=== PATIENT | female | born 1990 | race Caucasian/White ===

== ENCOUNTER 2016-10-24 12:28 | Inpatient (IN) | payer OTHER ==
[~2016-10-24] VITALS: Ht 152.4 cm; Wt 64.1 kg
[2016-10-24 13:00] VITALS: BP 118/62; PULSE 90; RESP 18; Ht 152.4 cm; Wt 64.1 kg
[2016-10-24] MEDS ORDERED: FERR325C PO (13:09)
[2016-10-24] MEDS ORDERED: CALC600T11 PO (13:09)
[2016-10-24] MEDS ORDERED: PRENAT PO (13:09)
[2016-10-24] MEDS ORDERED: OXYTOCIN 30 UNITS/LR 500 ML IV PRN (15:00)
[2016-10-24] MEDS ORDERED: METHYLERGONOVINE 0.2 MG INJ IM PRN (15:00)
[2016-10-24] MEDS ORDERED: BETAMET NA PHOS/AC(6 MG/ML) 5ML INJ IM ONE (15:00)
[2016-10-24] MEDS ORDERED: AMPICILLIN 2 GM/NS (PMX) 100 ML IV ONE (15:00)
[2016-10-24] MEDS ORDERED: MISOPROSTOL 200 MCG TAB PR PRN (15:00)
[2016-10-24] MEDS ORDERED: CARBOPROST 250 MCG INJ IM PRN (15:00)
[2016-10-24] MEDS ORDERED: OXYTOCIN 30 UNITS/LR 500 ML IV SCH ×2 (15:00)
[2016-10-24] MEDS ORDERED: LACTATED RINGER'S 1,000 ML IV PRN (15:00)
[2016-10-24] MEDS ORDERED: IBUPROFEN 600 MG TAB PO PRN (15:00)
[2016-10-24] MEDS ORDERED: LIDOCAINE 1% (MPF) 30 ML INJ INJ PRN (15:00)
[2016-10-24] MEDS ORDERED: NIFEdipine 10 MG CAP ONE (15:21)
[2016-10-24] MEDS: LACTATED RINGER'S 1,000 ML IV SCH (15:24)
[2016-10-24] MEDS: NIFEdipine 10 MG CAP PO SCH (15:49)
[2016-10-24 15:58] LABS: BASOPHILS % 0.1 % (0.0-2.0); EOSINOPHILS # 0.1 10^3/ul (0.0-0.5); EOSINOPHILS % 1.2 % (0.0-7.0); HEMATOCRIT 37.1 % (37.0-47.0); HEMOGLOBIN 12.8 g/dl (12.0-16.0); LYMPHOCYTES # 1.1 10^3/ul (0.8-2.9); LYMPHOCYTES % 9.3 % (15.0-51.0); MEAN CORPUSCULAR HEMOGLOBIN 31.7 pg (29.0-33.0); MEAN CORPUSCULAR HGB CONC 34.4 g/dl (32.0-37.0); MEAN PLATELET VOLUME 9.6 fl (7.4-10.4); MONOCYTE # 0.8 10^3/ul (0.3-0.9); MONOCYTES % 6.4 % (0.0-11.0); NEUTROPHIL # 10.1 10^3/ul (1.6-7.5); PLATELET COUNT 218 10^3/UL (140-440); RED BLOOD COUNT 4.03 10^6/ul (4.20-5.40); RED CELL DISTRIBUTION WIDTH 12.9 % (11.5-14.5); UNCORRECTED WBC 12.2 10^3/ul (4.8-10.8); WHITE BLOOD COUNT 12.2 10^3/ul (4.8-10.8)
[2016-10-24 16:06] LABS: INR 1.01; PROTIME 13.3 Sec (12.2-14.2)
[2016-10-24 16:07] LABS: PARTIAL THROMBOPLASTIN TIME 30.3 Sec (25.0-35.0)
[2016-10-24 16:12] LABS: CONDITION 1
[2016-10-24 16:24] LABS: BARBITURATES Negative (NEGATIVE); BENZODIAZEPINES Negative (NEGATIVE); CANNABINOIDS Negative (NEGATIVE); COCAINE Negative (NEGATIVE)
[2016-10-24 16:31] LABS: OPIATES Negative (NEGATIVE)
[2016-10-24] MEDS ORDERED: GLUCOSE GEL 15 GRAM TUBE BUCCAL PRN (19:30)
[2016-10-24] MEDS ORDERED: DEXTROSE 50% 50 ML SYRINGE IV PRN ×2 (19:30)
[2016-10-24] MEDS ORDERED: GLUCOSE GEL 15 GRAM TUBE PO PRN ×2 (19:30)
[2016-10-24] MEDS ORDERED: GLUCAGON 1 MG INJ IM PRN (19:30)
[2016-10-24] MEDS: ACCUCHECK XX SCH (19:35)
--- NOTE | 2016-10-24 20:32 | HP ---
Date/Time of Note Date/Time of Note DATE: 10/24/16 TIME: 20:24 OB - History Hx of Present Chief Complaint: Contractions Last Menstrual Period: February 27, 2016 Estimated Due Date: Nov 25, 2016 : 1 Para: 0 Spontaneous : 0 Therapeutic : 0 Care: Good Care Ultrasounds: Normal mid trimester US Obstetrical Complications: Gestational Diabetes Medical Complications: None Past Family/Social History * Past Medical, Surgical, Family and Obstetric Histories reviewed from chart. OB Admission Exam Vital Signs Vital Signs Vital Signs Date Time Temp Pulse Resp B/P Pulse Ox O2 Delivery O2 Flow Rate FiO2 10/24/16 13:00 98.7 90 18 118/62 Room Air Physical Exam HEENT: WNL Heart: Rhythm Normal Lungs: Clear Abdomen: WNL Extremities: Normal Reflexes: Normal Cervical Dilatation: 3cm Effacement: 75% Station: -1 Membranes: Intact Heart Rate: 150's Decelerations: No Decelerations Varibility: Moderate Contractions on Admission: < 5 Minutes Apart Intensity: Mild Last 72 hourBlood Glucose Bedside Glucose - 72 Hours Test 10/24/16 20:17 Bedside Glucose 150mg/dL (70-220) Last 72 hours Lab Results CBC & BMP 10/24/16 15:25 OB Assessment/Plan Reason for admission: labor Plan: Other Other plan: Procardia for tocolysis. IM betamethasone for lung maturity. IV ampicillin for GBS prophylaxis. Monitor blood glucose. Sliding scale insulin coverage as needed. SHELLY CORNEJO MD Oct 24, 2016 20:32
[2016-10-24] MEDS ORDERED: ACCUCHECK XX SCH (21:00)
[2016-10-24] MEDS: AMPICILLIN 1 GM/NS (PMX) 50 ML IV SCH (21:10)
[2016-10-24] MEDS: INSULIN ASPART [NOVOLOG] 3 ML PEN SC SCH (21:24)
[2016-10-25] MEDS: LACTATED RINGER'S 1,000 ML IV SCH ×6 (00:14→22:44)
[2016-10-25] MEDS: AMPICILLIN 1 GM/NS (PMX) 50 ML IV SCH ×7 (00:46→23:00)
[2016-10-25] MEDS: NIFEdipine 10 MG CAP PO SCH ×4 (00:48→17:57)
[2016-10-25] MEDS: ACCUCHECK XX SCH ×4 (06:00→19:35)
--- NOTE | 2016-10-25 07:21 | RADRPT ---
PROCEDURE: Limited OB ultrasound CLINICAL INDICATION: Leaking fluid TECHNIQUE: Sonographic evaluation to assess the GIULIA was performed. Transabdominal imaging of the gravid uterus was performed. COMPARISON: No prior exam is available for comparison. FINDINGS: There is a single live intrauterine with a heart rate of 136 bpm. position is cephalic. The placenta is posterior. The GIULIA measures 4.9 cm. IMPRESSION: Oligohydramnios. The GIULIA measures 4.9 cm. RPTAT: HH .Anjali Mondragon MD, MD Date Time Electronically viewed and signed by .Anjali Mondragon MD, on 10/25/2016 07:20 .G/
[2016-10-25] MEDS ORDERED: LACTATED RINGER'S 1,000 ML IV ONE (08:30)
[2016-10-25] MEDS: INSULIN ASPART [NOVOLOG] 3 ML PEN SC SCH ×3 (09:35→19:35)
[2016-10-25] MEDS ORDERED: BETAMET NA PHOS/AC(6 MG/ML) 5ML INJ IM STA (16:01)
--- NOTE | 2016-10-25 20:09 | QN ---
Documentation Comment Patient c/o occasional contractions. Denies any leakage of fluid. Afebrile VSS Strip Category I GIULIA 4.9 Will give IV hydration. Repeat GIULIA on 10/26/2016. SHELLY CORNEJO MD Oct 25, 2016 20:08
[2016-10-26] MEDS: NIFEdipine 10 MG CAP PO SCH ×4 (00:08→17:59)
[2016-10-26] MEDS: LACTATED RINGER'S 1,000 ML IV SCH ×7 (00:12→22:44)
[2016-10-26] MEDS: AMPICILLIN 1 GM/NS (PMX) 50 ML IV SCH ×3 (02:40→11:15)
--- NOTE | 2016-10-26 09:33 | RADRPT ---
PROCEDURE: US evaluation of amniotic fluid volume. CLINICAL INDICATION: Low amniotic fluid volume. TECHNIQUE: Multiple sonographic images of the gravid uterus were obtained utilizing bardales-scale angeline ging. Sagittal and transverse images were obtained. The images were reviewed on a PACS workstation . GIULIA was measured. COMPARISON: 10/25/2016 which demonstrated oligohydramnios. FINDINGS: There is a single live intrauterine . heart rate is 141 beats per minute. Position is cephalic. Placenta is lateral left grade II with no abruption or previa. GIULIA is 11.1 cm. (Normal = 5-20 cm.) IMPRESSION: 1. GIULIA is 11.1 cm. RPTAT: QQ .Manfred Aragon MD, MD Date Time Electronically viewed and signed by .Manfred Aragon MD, on 10/26/2016 09:33 .R/
--- NOTE | 2016-10-26 19:03 | QN ---
Documentation Comment Patient with mild contractions. Afebrile VSS Strip Category I GIULIA 11.1 Continue with present management. Repeat GIULIA on 10/27/2016. SHELLY CORNEJO MD Oct 26, 2016 19:03
[2016-10-26] MEDS: INSULIN ASPART [NOVOLOG] 3 ML PEN SC SCH ×3 (19:30→20:50)
[2016-10-26] MEDS: ACCUCHECK XX SCH (20:31)
[2016-10-27] MEDS: LACTATED RINGER'S 1,000 ML IV SCH ×7 (00:30→21:45)
[2016-10-27] MEDS: NIFEdipine 10 MG CAP PO SCH ×5 (00:52→23:50)
[2016-10-27] MEDS: ACCUCHECK XX SCH ×5 (06:03→20:43)
--- NOTE | 2016-10-27 08:09 | RADRPT ---
PROCEDURE: Limited OB ultrasound CLINICAL INDICATION: Leaking fluid TECHNIQUE: Sonographic evaluation to assess the GIULIA was performed. Transabdominal imaging of the gravid uterus was performed. COMPARISON: OB ultrasound dated 10/25/2016 FINDINGS: There is a single live intrauterine with a heart rate of 154 bpm. position is cephalic. The placenta is posterior. The GIULIA measures 12.6 cm. IMPRESSION: The GIULIA measures 12.6 cm. RPTAT: HH .Anjali Mondragon MD, MD Date Time Electronically viewed and signed by .Anjali Mondragon MD, on 10/27/2016 08:09 .G/
[2016-10-27] MEDS: INSULIN ASPART [NOVOLOG] 3 ML PEN SC SCH ×4 (09:35→19:35)
--- NOTE | 2016-10-27 17:26 | QN ---
Documentation Comment Patient with occasional contractions. Afebrile VSS Tracing Category I GIULIA 12 Cervix 4 cm Continue with in hospital care. SHELLY CORNEJO MD Oct 27, 2016 17:25
[2016-10-28] MEDS: LACTATED RINGER'S 1,000 ML IV SCH ×5 (02:03→23:40)
[2016-10-28] MEDS: NIFEdipine 10 MG CAP PO SCH ×3 (11:48→18:01)
--- NOTE | 2016-10-28 21:32 | QN ---
Documentation Comment Patient with mild contractions. Afebrile VSS Strip Category I Will d/c Procardia. Expectant management. SHELLY CORNEJO MD Oct 28, 2016 21:32
[2016-10-29] MEDS: LACTATED RINGER'S 1,000 ML IV SCH ×7 (01:24→21:57)
[2016-10-29] MEDS: ACCUCHECK XX SCH ×4 (08:45→22:05)
--- NOTE | 2016-10-29 11:52 | RADRPT ---
PROCEDURE: OB ultrasound (limited) CLINICAL INDICATION: Contractions TECHNIQUE: Limited sonographic evaluation of the gravid uterus was performed. Transabdominal imag ing was performed. COMPARISON: 10/27/2016 FINDINGS: Single intrauterine gestation is identified in cephalic position. Placenta is posterior without ailyn dence for abruption or previa. heart rate is 143 bpm. GIULIA measures 9.0 cm, within normal menendez its. Previously, GIULIA measured 12.6 cm. Gestational age was not assessed. IMPRESSION: 1. Single live intrauterine gestation, as above. RPTAT: EE .Roni Lagos MD, MD Date Time Electronically viewed and signed by .Roni Lagos MD, on 10/29/2016 11:52 .R/
--- NOTE | 2016-10-29 12:57 | QN ---
Documentation Comment Patient with occasional contractions. Afebrile VSS Strip Category I GIULIA 9.1 Cervix 4 cm/ 70% Continue with expectant management. SHELLY CORNEJO MD Oct 29, 2016 12:57
[2016-10-30] MEDS: LACTATED RINGER'S 1,000 ML IV SCH ×4 (04:23→22:44)
--- NOTE | 2016-10-30 19:11 | QN ---
Documentation Comment Patient with occasional contractions. Afebrile VSS Strip Category I Continue with in hospital care. SHELLY CORNEJO MD Oct 30, 2016 19:11
[2016-10-31] MEDS: LACTATED RINGER'S 1,000 ML IV SCH ×3 (05:14→22:51)
[2016-10-31] MEDS: ACCUCHECK XX SCH ×4 (07:30→20:05)
--- NOTE | 2016-10-31 08:09 | RADRPT ---
PROCEDURE: US evaluation of amniotic fluid volume. CLINICAL INDICATION: Pelvic pain. TECHNIQUE: Multiple sonographic images of the gravid uterus were obtained utilizing bardales-scale angeline ging. Sagittal and transverse images were obtained. The images were reviewed on a PACS workstation . GIULIA was measured. COMPARISON: 10/26/2016. FINDINGS: There is a single live intrauterine . heart rate is 137 beats per minute. Position is cephalic. Placenta is fundal grade II with no abruption or previa. GIULIA is 10.8 cm. (Normal = 5-20 cm.) IMPRESSION: 1. GIULIA is 10.8 cm. RPTAT: QQ .Manfred Aragon MD, Date Time Electronically viewed and signed by .Manfred Aragon MD, on 10/31/2016 08:09 .R/
--- NOTE | 2016-10-31 21:47 | QN ---
Documentation Comment No complaint Afebrile VSS strip Reactive Continue present care. SHELLY CORNEJO MD Oct 31, 2016 21:47
[2016-11-01] MEDS: ACCUCHECK XX SCH ×4 (07:30→20:05)
[2016-11-01] MEDS: LACTATED RINGER'S 1,000 ML IV SCH ×2 (07:59→17:22)
[2016-11-01] MEDS: MULTIVIT/MIN/FOLATE/IRON/PREN TAB PO SCH ×2 (09:00→10:59)
--- NOTE | 2016-11-01 21:15 | QN ---
Documentation Comment No complaint. Afebrile VSS Strip Reactive Continue with in hospital care. SHELLY CORNEJO MD Nov 01, 2016 21:15
[2016-11-02] MEDS: LACTATED RINGER'S 1,000 ML IV SCH ×5 (00:47→18:30)
[2016-11-02] MEDS: ACCUCHECK XX SCH ×4 (07:43→20:05)
--- NOTE | 2016-11-02 10:41 | RADRPT ---
PROCEDURE: US biophysical profile. CLINICAL INDICATION: Diminished amniotic fluid volume. TECHNIQUE: Multiple sonographic images of the uterus were obtained. The images were revi ewed on a PACS workstation. COMPARISON: Amniotic fluid index ultrasound dated 10/31/2016. FINDINGS: There is a single live intrauterine gestation. heart rate is 146 beats per minute. The position is cephalic. The placenta is posterior grade II with no abruption or previa. The GIULIA is 7.1 cm. (Normal = 5-20 cm.) Breathing Movement: 2 Gross Body Movement: 2 Tone: 2 Qualitative Amniotic Fluid Volume: 2 TOTAL: 8 IMPRESSION: 1. The biophysical score is 8/8. 2. Amniotic fluid index is 7.1 cm. RPTAT: QQ .Manfred Aragon MD, Date Time Electronically viewed and signed by .Manfred Aragon MD, on 11/02/2016 10:41 .R/
--- NOTE | 2016-11-02 18:12 | QN ---
Documentation Comment No cpmplaint. Afebrile VSS Strip Reactive with one episode of heart deceleration BPP 8/8 GIULIA 7.1 Will give IV hydration. Repeat GIULIA on 11/03/2016. SHELLY CORNEJO MD Nov 02, 2016 18:12
[2016-11-02] MEDS ORDERED: LACTATED RINGER'S 1,000 ML IV ONE (18:30)
[2016-11-03] MEDS: LACTATED RINGER'S 1,000 ML IV SCH ×6 (01:15→21:10)
--- NOTE | 2016-11-03 01:55 | QN ---
Documentation Comment No complaint. Afebrile VSS Strip Reactive Continue IV hydration Repeat GIULIA SHELLY CORENJO MD Nov 03, 2016 01:55
[2016-11-03] MEDS: ACCUCHECK XX SCH ×4 (07:40→19:58)
[2016-11-03] MEDS: MULTIVIT/MIN/FOLATE/IRON/PREN TAB PO SCH (09:26)
--- NOTE | 2016-11-03 09:53 | RADRPT ---
PROCEDURE: US OB GIULIA. CLINICAL INDICATION: Follow-up GIULIA. well-being. TECHNIQUE: Multiple sonographic images of the uterus were obtained. The images were revi ewed on a PACS workstation. COMPARISON: 11/02/2016. FINDINGS: There is a single live intrauterine gestation. heart rate is one-fifth beats per minute. The position is the. The placenta is posterior, grade 2. The GIULIA is 8.6 cm. Previously measures 7.1 cm on 11/02/2016. IMPRESSION: 1. Single viable intrauterine gestation. 2. The GIULIA is 8.6 cm. Previously measures 7.1 cm on 11/02/2016. RPTAT: AA .Tiana Orta MD, MD Date Time Electronically viewed and signed by .Tiana Orta MD, MD on 11/03/2016 09:52 .N/
[2016-11-03] MEDS ORDERED: LACTATED RINGER'S 1,000 ML IV SCH (23:45)
[2016-11-04] MEDS: LACTATED RINGER'S 1,000 ML IV SCH ×5 (00:22→23:52)
[2016-11-04] MEDS: ACCUCHECK XX SCH ×4 (08:13→20:25)
[2016-11-04] MEDS: MULTIVIT/MIN/FOLATE/IRON/PREN TAB PO SCH (08:39)
[2016-11-04] MEDS ORDERED: SENNA TAB PO SCH (09:00)
--- NOTE | 2016-11-04 11:29 | RADRPT ---
PROCEDURE: US GIULIA CLINICAL INDICATION: Amniotic fluid index. well-being. labor TECHNIQUE: Limited OB ultrasound was performed to determine four-quadrant amniotic fluid index. COMPARISON: 11/03/2016 FINDINGS: There is a single live intrauterine . Normal cardiac activity is identified at a rat e of 138 beats per minute. presentation is cephalic. Placenta is posterior grade II Four quadrant GIULIA = 11.0 cm IMPRESSION: Four quadrant GIULIA = 11.0 cm RPTAT: HH .Meng Strickland MD, Date Time Electronically viewed and signed by .Meng Strickland MD, on 11/04/2016 11:29 .W/
--- NOTE | 2016-11-04 19:27 | QN ---
Documentation Comment No complaint Afebrile VSS Strip Reactive GIULIA 11 Will lisa Perinatology consult. SHELLY CORNEJO MD Nov 04, 2016 19:27
--- NOTE | 2016-11-04 22:31 | RADRPT ---
PROCEDURE: US Lower extremity Venous. CLINICAL INDICATION: Pain and swelling TECHNIQUE: Multiple sonographic images of the bilateral lower extremity deep venous system was obt ained utilizing grayscale, color-flow, compressive sonography and doppler imaging with augmentation. The images were reviewed on a PACS workstation. COMPARISON: The FINDINGS: There is normal compressibility and flow within the bilateral common femoral, deep femoral, superfic ial femoral, posterior tibial, peroneal and popliteal veins. IMPRESSION: No sonographic evidence for deep venous thrombosis. RPTAT:AAJJ Physician Dmitriy Date Time Electronically viewed and signed by Physician Dmitriy on 11/04/2016 22:31 NGHIA/
[2016-11-05] MEDS: LACTATED RINGER'S 1,000 ML IV SCH ×2 (05:21→12:14)
[2016-11-05] MEDS: ACCUCHECK XX SCH ×4 (07:30→19:35)
[2016-11-05] MEDS: MULTIVIT/MIN/FOLATE/IRON/PREN TAB PO SCH (09:34)
--- NOTE | 2016-11-05 10:46 | RADRPT ---
PROCEDURE: US evaluation of amniotic fluid volume. CLINICAL INDICATION: History of oligohydramnios. TECHNIQUE: Multiple sonographic images of the gravid uterus were obtained utilizing bardales-scale angeline ging. Sagittal and transverse images were obtained. The images were reviewed on a PACS workstation . GIULIA was measured. COMPARISON: 11/04/2016 which demonstrated amniotic fluid index of 11.0 cm. FINDINGS: There is a single live intrauterine . heart rate is 174 beats per minute. Position is cephalic. Placenta is posterior grade II with no abruption or previa. GIULIA is 11.0 cm. (Normal = 5-20 cm.) IMPRESSION: 1. GIULIA is 11.0 cm. RPTAT: QQ .Manfred Aragon MD, Date Time Electronically viewed and signed by .Manfred Aragon MD, on 11/05/2016 10:46 .R/
[2016-11-05] MEDS ORDERED: LACTATED RINGER'S 1,000 ML IV SCH ×2 (15:02→16:50)
[2016-11-05] MEDS ORDERED: BUTORPHANOL 2 MG INJ IV PRN ×2 (15:30)
[2016-11-05] MEDS ORDERED: OXYTOCIN 30 UNITS/LR 500 ML IV PRN (15:30)
[2016-11-05] MEDS ORDERED: MISOPROSTOL 200 MCG TAB PR PRN (15:30)
[2016-11-05] MEDS ORDERED: AMPICILLIN 2 GM/NS (PMX) 100 ML IV ONE (15:30)
[2016-11-05] MEDS ORDERED: CARBOPROST 250 MCG INJ IM PRN (15:30)
[2016-11-05] MEDS ORDERED: OXYTOCIN 30 UNITS/LR 500 ML IV SCH (15:30)
[2016-11-05] MEDS ORDERED: IBUPROFEN 600 MG TAB PO PRN (15:30)
[2016-11-05] MEDS ORDERED: METHYLERGONOVINE 0.2 MG INJ IM PRN (15:30)
[2016-11-05] MEDS ORDERED: ACETAMINOPHEN/CODEINE #3 TAB PO PRN (15:30)
[2016-11-05] MEDS ORDERED: LIDOCAINE 1% (MPF) 30 ML INJ INJ PRN (15:30)
[2016-11-05 15:42] LABS: BASOPHILS % 0.2 % (0.0-2.0); EOSINOPHILS # 0.1 10^3/ul (0.0-0.5); EOSINOPHILS % 0.8 % (0.0-7.0); HEMATOCRIT 33.9 % (37.0-47.0); HEMOGLOBIN 11.5 g/dl (12.0-16.0); LYMPHOCYTES # 1.4 10^3/ul (0.8-2.9); LYMPHOCYTES % 14.5 % (15.0-51.0); MEAN CORPUSCULAR HEMOGLOBIN 31.6 pg (29.0-33.0); MEAN CORPUSCULAR HGB CONC 34.1 g/dl (32.0-37.0); MEAN CORPUSCULAR VOLUME 92.7 fl (82.0-101.0); MEAN PLATELET VOLUME 8.9 fl (7.4-10.4); MONOCYTE # 0.7 10^3/ul (0.3-0.9); MONOCYTES % 7.5 % (0.0-11.0); NEUTROPHIL # 7.4 10^3/ul (1.6-7.5); PLATELET COUNT 246 10^3/UL (140-440); RED BLOOD COUNT 3.65 10^6/ul (4.20-5.40); RED CELL DISTRIBUTION WIDTH 12.7 % (11.5-14.5); UNCORRECTED WBC 9.6 10^3/ul (4.8-10.8); WHITE BLOOD COUNT 9.6 10^3/ul (4.8-10.8)
[2016-11-05 15:45] LABS: CONDITION 1
[2016-11-05 15:51] LABS: PROTIME 13.2 Sec (12.2-14.2)
[2016-11-05 15:52] LABS: PARTIAL THROMBOPLASTIN TIME 28.7 Sec (25.0-35.0)
[2016-11-05] MEDS ORDERED: DEXTROSE 5%-LR 1,000 ML IV SCH (16:50)
[2016-11-05] MEDS ORDERED: LACTATED RINGER'S 1,000 ML IV PRN (17:00)
[2016-11-05] MEDS: AMPICILLIN 1 GM/NS (PMX) 50 ML IV SCH ×2 (18:48→23:03)
--- NOTE | 2016-11-05 22:13 | QN ---
Documentation Comment No complaint. Afebrile VSS Strip Reactive Will augment labor with oxytocin per recommendation of Perinatology. SHELLY CORNEJO MD Nov 05, 2016 22:13
[2016-11-05] MEDS ORDERED: FENTAnyl 2MCG/ML-ROPIV 0.2% 100 ML ONE (23:24)
[2016-11-06] MEDS ORDERED: FENTAnyl 2MCG/ML-ROPIV 0.2% 100 ML BAG EPI SCH (00:30)
[2016-11-06] MEDS ORDERED: NALOXONE (0.4 MG/ML) INJ IV PRN (00:30)
--- NOTE | 2016-11-06 03:43 | LDN ---
Date/Time of Note Date/Time of Note DATE: 11/06/16 TIME: 03:39 Delivery Summary over intact perineum Placenta Delivered: Spontaneously Meconium: none Perineum intact?: No (Please specify) Perineal laceration: 1 Perineal laceration repair: First degree perineal repaired with 3-0 Vicryl. Anesthesia type: Epidural Estimated blood loss: 200 (ml) Sponge & Needle done & correct: Yes Any foreign bodies felt in the: No Problems: Delivery Information Sex Infant Sex: male Apgars 1 Minute: 9 5 Minute: 9 Suctioning Nose & mouth suctioned at taj: Yes Delee suction performed: No Umbilical Cord Umbilical cord with: 3 Vessels Cord presentations: no nuchal cord Cord Blood was obtained: Yes Mother & Baby Disposition Disposition Mom & Baby to Maternity; Good: Yes SHELLY CORNEJO MD Nov 06, 2016 03:43
[2016-11-06 05:30] VITALS: BP 116/61; PULSE 76; RESP 16
[2016-11-06] MEDS ORDERED: MISOPROSTOL 200 MCG TAB PR PRN (05:30)
[2016-11-06] MEDS ORDERED: BENZOCAINE 20% 56 ML SPRAY TOP PRN (05:30)
[2016-11-06] MEDS ORDERED: CARBOPROST 250 MCG INJ IM PRN (05:30)
[2016-11-06] MEDS ORDERED: METHYLERGONOVINE 0.2 MG INJ IM PRN (05:30)
[2016-11-06] MEDS ORDERED: WITCH HAZEL/GLYCERIN PAD PR PRN (05:30)
[2016-11-06] MEDS ORDERED: OXYTOCIN 30 UNITS/LR 500 ML IV PRN (05:30)
[2016-11-06] MEDS ORDERED: DIBUCAINE 1% 30 GM OINT PR PRN (05:30)
[2016-11-06] MEDS ORDERED: ACETAMINOPHEN 325 MG TAB PO PRN (05:30)
[2016-11-06] MEDS ORDERED: ACETAMINOPHEN/CODEINE #3 TAB PO PRN (05:30)
--- NOTE | 2016-11-06 05:48 | DELSUM ---
Delivery Summary A-C Datetime Report Generated by CPN: 11/06/2016 05:47 DELIVERY PERSONNEL Cytogenetic Technologist: [place], Argelia Kylah MATERNAL INFORMATION Delivery Anesthesia: Epidural Medications in Delivery: 30 UNITS PITOCIN IN 500 ML LR Estimated Blood Loss (ml): 200 Placenta Cultured: No Maternal Complications: Other Other Maternal Complications: GDM DIET CONTROLLED LABOR SUMMARY EDC: 11/25/2016 00:00 No. Babies in Womb: 1 Attempted: No Labor Anesthesia: Epidural LABOR INFORMATION Reason for Induction: Maternal Diabetes Onset of Labor: 10/24/2016 14:00 Complete Dilatation: 11/06/2016 02:40 Oxytocin: Induction Group B Beta Strep: Not Done Antibiotics # of Doses: 3 Antibiotics Time of Last Dose: 2303 Steroids Given: Full Course Reason Steroids Not Administered: Indication; Maternal Indication MEMBRANES Membranes Rupture Method: Spontaneous Rupture of Membranes: 11/06/2016 00:40 Length of Rupture (hr): 2.62 Amniotic Fluid Color: Clear Amniotic Fluid Amount: Moderate Amniotic Fluid Amount: Scant Amniotic Fluid Odor: Normal STAGES OF LABOR Stage 1 hr: 300 Stage 1 min: 40 Stage 2 hr: 0 Stage 2 min: 37 Stage 3 hr: 0 Stage 3 min: 4 Total Time in Labor hr: 301 Total Time in Labor min: 21 VAGINAL DELIVERY Episiotomy: None Laceration Extension: First Degree Laceration Type: Perineal Laceration Repair: Yes Initial Vag Sponge Count: 20 Final Vag Sponge Count: 20 Initial Vag Sharps Count: 1 Final Vag Sharps Count: 2 Sponge Count Correct: Yes; Vaginal Sweep Performed Sharps Count Correct: Yes Count Comment: 1 SHARP ADDED DURING DELIVERY BABY A INFORMATION Delivery Date/Time: 11/06/2016 03:17 Method of Delivery: Vaginal Born in Route : No : N/A Forceps: N/A Vacuum Extraction: N/A Shoulder Dystocia : N/A SHOULDER DYSTOCIA BABY A Infant Delivery Date/Time: 11/06/2016 03:17 PRESENTATION/POSITION BABY A Presentation: Cephalic Cephalic Presentation: Vertex Vertex Position: Left Occipital Anterior Breech Presentation: N/A PLACENTA INFORMATION BABY A Placenta Delivery Time : 11/06/2016 03:21 Placenta Method of Delivery: Spontaneous Placenta Status: Delivered SCORES BABY A Heart Rate 1 min: >100 bpm Resp Effort 1 min: Good Cry Reflex Irritability 1 min: Cough/Sneeze/Pulls Away Muscle Tone 1 min: Active Motion Color 1 min: Body [place], Extremit Blue Resuscitation Effort 1 min: Tactile Stimulation SCORE 1 MIN: 9 Heart Rate 5 min: >100 bpm Resp Effort 5 min: Good Cry Reflex Irritability 5 min: Cough/Sneeze/Pulls Away Muscle Tone 5 min: Active Motion Color 5 min: Body [place], Extremit Blue Resuscitation Effort 5 min: Tactile Stimulation SCORE 5 MIN: 9 INFANT INFORMATION BABY A Gestational Age at Delivery: 37.2 Gestational Status: Early Term- 37- 38.6 Weeks Infant Outcome : Liveborn Condition : Stable Sex: Male IDENTIFICATION/MEDS BABY A ID Band Number: [id number] ID Band Location: Right Leg; Left Arm Sensor Number: [id number] Sensor Location : Cord Clamp Vitamin K Given : Not Given Erythromycin Given: Not Given WEIGHT/LENGTH BABY A Infant Birthweight (gm): 3280 Weight (lb): 7 Infant Weight (oz): 4 Infant Length (in): 18.50 Length (cm): 46.99 CORD INFORMATION BABY A No. Cord Vessels: 3 Nuchal Cord : N/A Cord Blood Taken: Yes Suction: Mouth; Nose ASSESSMENT BABY A Complications: None Physical Findings at Delivery: Within Normal Limits Infant Respirations: Appears Normal Felt Dyeing Machine Tender/ALS Called : No Infant Care By: JOSE CORREIA RN Transferred To: Remains with Mother
[2016-11-06 06:00] VITALS: BP 105/62; PULSE 84; RESP 84
[2016-11-06] MEDS: IBUPROFEN 600 MG TAB PO SCH ×3 (06:20→17:52)
[2016-11-06] MEDS: LACTATED RINGER'S 1,000 ML IV* SCH ×3 (07:26→21:06)
[2016-11-06 08:00] VITALS: BP 105/67; PULSE 86; RESP 18
[2016-11-06] MEDS: SENNA/DOCUSATE NA (8.6MG/50MG) TAB PO SCH ×2 (09:00→21:31)
[2016-11-06 16:00] VITALS: BP 108/62; PULSE 79; RESP 18
[2016-11-06] MEDS ORDERED: INFLUENZA VIRUS VACCINE 0.5 ML (DISPENSING) IM* ONE (17:00)
[2016-11-06 19:50] VITALS: BP 130/70; PULSE 88; RESP 18
[2016-11-07] MEDS: LACTATED RINGER'S 1,000 ML IV* SCH (05:06)
[2016-11-07] MEDS: IBUPROFEN 600 MG TAB PO SCH ×5 (05:21→23:25)
[2016-11-07 08:00] VITALS: BP 102/66; PULSE 88; RESP 20
[2016-11-07 08:04] LABS: BASOPHILS % 0.4 % (0.0-2.0); EOSINOPHILS # 0.2 10^3/ul (0.0-0.5); EOSINOPHILS % 1.1 % (0.0-7.0); HEMATOCRIT 36.3 % (37.0-47.0); HEMOGLOBIN 12.4 g/dl (12.0-16.0); LYMPHOCYTES # 1.5 10^3/ul (0.8-2.9); LYMPHOCYTES % 11.4 % (15.0-51.0); MEAN CORPUSCULAR HEMOGLOBIN 31.7 pg (29.0-33.0); MEAN CORPUSCULAR HGB CONC 34.2 g/dl (32.0-37.0); MEAN CORPUSCULAR VOLUME 92.8 fl (82.0-101.0); MEAN PLATELET VOLUME 9.7 fl (7.4-10.4); MONOCYTE # 0.8 10^3/ul (0.3-0.9); MONOCYTES % 5.9 % (0.0-11.0); NEUTROPHIL # 10.6 10^3/ul (1.6-7.5); NEUTROPHILS % 81.2 % (39.0-77.0); PLATELET COUNT 239 10^3/UL (140-440); RED BLOOD COUNT 3.91 10^6/ul (4.20-5.40); RED CELL DISTRIBUTION WIDTH 12.8 % (11.5-14.5); UNCORRECTED WBC 13.1 10^3/ul (4.8-10.8); WHITE BLOOD COUNT 13.1 10^3/ul (4.8-10.8)
[2016-11-07 08:12] LABS: CONDITION 1
[2016-11-07] MEDS ORDERED: INFLUENZA VIRUS VACCINE 0.5 ML (DISPENSING) IM* ONE (09:00)
[2016-11-07] MEDS: SENNA/DOCUSATE NA (8.6MG/50MG) TAB PO SCH ×2 (09:35→21:00)
[2016-11-07 15:43] VITALS: BP 112/58; PULSE 76; RESP 18
--- NOTE | 2016-11-07 17:29 | DS ---
Date/Time of Note Date/Time of Note DATE: 11/07/16 TIME: 17:27 Obstetrical Discharge Record Final Diagnosis Final Diagnosis: Term delivered Vaginal Delivery Obstetrical Delivery: Spontaneous Complications Gestational Diabetes Augmentation: No Induction: Yes Rupture of Membranes: No Condition on Discharge Physical Assessment Voiding: Yes Bowel Movement: Yes Breast: Soft, non-tender Fundus: Firm Calf Tenderness: No Patient Condition: Stable SHELLY CORNEJO MD Nov 07, 2016 17:29
[2016-11-07 20:45] VITALS: BP 125/64; PULSE 80; RESP 18
[2016-11-08 03:45] VITALS: BP 110/72; PULSE 86; RESP 18
[2016-11-08] MEDS: IBUPROFEN 600 MG TAB PO SCH (05:21)
[2016-11-08 08:00] VITALS: BP 114/82; PULSE 88; RESP 18
[2016-11-08] MEDS ORDERED: DIPHTH/TET/ACEL PERTUSS (ADULT) 0.5 ML VIAL IM* ONE (09:00)
[2016-11-08] MEDS: SENNA/DOCUSATE NA (8.6MG/50MG) TAB PO SCH (09:02)
== END 2016-11-08 17:27 | disposition home or self-care (01) | DRG 775 ==
LOC: OBT 12:28 → L-D 12:29 → OBT 14:36 → L-D 14:36 → OBG 10-29 12:45 → L-D 11-05 14:58 → PP1 11-06 05:17
PROVIDERS: ADMIT Obstetrics & Gynecology; ATTEND Obstetrics & Gynecology
PROC: 3E033VJ Introduction of Other Hormone into Peripheral Vein, Percutaneous Approach (ICD-10-PCS; 2016-10-24)
PROC: 10E0XZZ Delivery of Products of Conception, External Approach (ICD-10-PCS; principal; 2016-11-06)
PROC: 0HQ9XZZ Repair Perineum Skin, External Approach (ICD-10-PCS; 2016-11-06)
PROC: 3E0234Z Introduction of Serum, Toxoid and Vaccine into Muscle, Percutaneous Approach (ICD-10-PCS; 2016-11-07)
DX: O24.420 Gestational diabetes mellitus in childbirth, diet controlled (principal); O76 Abnormality in fetal heart rate and rhythm complicating labor and delivery; O70.0 First degree perineal laceration during delivery; Z3A.37 37 weeks gestation of pregnancy; Z37.0 Single live birth; Z23 Encounter for immunization
CPT/HCPCS: 62319; 76815; 76816; 76818; 80307; 82962; 84112; 85025; 85610; 85730; 86592; 86900; 86901; 87086; 87340; 88307; 90686; 90715; 93923; G0463; J0290; J0702; J1815; J2590; J3010; J7120; J7121